=== PATIENT | female | born 1940 | race Caucasian/White ===

== ENCOUNTER 2016-07-05 12:54 | Emergency (ER) | payer MEDICARE, OTHER ==
[~2016-07-05 12:54] MED LIST: ACIDOPHILU1 PO; ADVIL PO; ASA5GR PO; ASAB PO; CO Q-10100 MG PO; CYTO5 PO; FISH-EPA1000 MG PO; KLONO1 PO; LEVOTHYROXIN75 MCG PO; MAGOX4 PO; MELA3 PO; MELATONIN5 M1 PO; VITAMIN E
[2016-07-05 14:16] LABS: BASOPHILS 0.6 %; BASOPHILS ABSOLUTE 0.03 10/3/uL (0.0-0.16); EOSINOPHILS 2.1 %; EOSINOPHILS ABSOLUTE 0.11 10/3/uL (0.0-0.53); ER CBC TAT 0 Hrs 07 Mins; IMMATURE GRANULOCYTES 0.2 %; IMMATURE GRANULOCYTES ABSOLUTE 0.01 10/3/uL (0.0-0.11); LYMPHOCYTES 27.1 %; LYMPHOCYTES ABSOLUTE 1.45 10/3/uL (0.67-4.30); MANUAL DIFF NO %; MEAN CORPUS HGB CONC 33.3 g/dL (32.0-36.0); MEAN CORPUSCULAR HEMOGLOB 31.6 pg (26.0-34.0); MEAN CORPUSCULAR VOLUME 94.7 fL (80-100); MEAN PLATELET VOLUME 9.6 fL (9.2-13.0); MONOCYTES 7.1 %; MONOCYTES ABSOLUTE 0.38 10/3/uL (0.21-1.20); NEUTROPHILS 62.9 %; NEUTROPHILS ABSOLUTE 3.38 10/3/uL (2.02-8.40); PLATELET COUNT 254 10/3/uL (150-400); RBC DISTRIBUTION WIDTH 13.8 % (12.0-16.0); WHITE BLOOD CELLS 5.4 10/3/uL (4.5-10.5)
[2016-07-05 14:29] LABS: PROTIME (NOT ORD) 12.7 SEC (12.0-14.5)
[2016-07-05 14:36] LABS: ALBUMIN 3.7 G/DL (3.5-5.0); ALKALINE PHOSPHATASE 137 U/L (45-117); BUN (BLOOD UREA NITROGEN) 28 MG/DL (6-23); CALCIUM, SERUM 8.8 MG/DL (8.5-10.4); CHLORIDE, SERUM 103 MMOL/L (96-112); CO2 (CARBON DIOXIDE) 28 MMOL/L (24-34); CREATININE 1.38 MG/DL (0.55-1.02); GFR AFRICAN AMERICAN 43 ML/MIN (>=60); GFR NON AFRICAN AMERICAN 37 ML/MIN (>=60); GLOBULIN 3.6 G/DL (2.5-4.1); GLUCOSE, SERUM 133 MG/DL (60-99); POTASSIUM, SERUM 4.2 MMOL/L (3.5-5.3); SGOT(AST) 22 U/L (5-40); SGPT(ALT) 56 U/L (5-65); SODIUM, SERUM 140 MMOL/L (135-148); TOTAL BILIRUBIN 0.5 MG/DL (0-1.2); TOTAL PROTEIN 7.3 G/DL (6.0-8.5); TROPONIN I <0.02 NG/ML (<0.05)
[2016-07-05 15:20] LABS: ASCORBIC ACID (UR NOT ORDER) 40 (NEG); BILIRUBIN, URINE NEGATIVE (NEG); ER URINALYSIS TAT 0 Hrs 13 Mins; KETONE, URINE NEGATIVE (NEG); LEUKOCYTE ESTERASE(NOT OR SMALL (NEG); NITRITE (URINE) NEG (NEG); WBC (NOT ORDERED) (RFLEX) 4 (0-5)
== END 2016-07-05 20:20 ==
LOC: ER 12:54
PROVIDERS: Emergency Medicine
DX: F03.90 Unspecified dementia, unspecified severity, without behavioral disturbance, psychotic disturbance, mood disturbance, and anxiety (principal)
CPT/HCPCS: 70450; 71010; 80053; 81001; 84484; 85025; 85610; 85730; 87077; 87086; 87186; 99285; J1630